=== PATIENT | female | born 1975 | race Hispanic/Latino ===

== ENCOUNTER 2020-06-17 17:29 | Outpatient (CLI) | payer BC, SELFPAY ==
--- NOTE | ~2020-06-17 | MM_ITS ---
EXAMINATION: MM screening [facility] BI w ceasar HISTORY: Screening TECHNIQUE: Craniocaudal and mediolateral oblique 3-D tomosynthesis images were obtained and synthetic 2-D images were generated. CAD analysis was submitted and interpreted. COMPARISON: Comparison to multiple prior studies sequentially, with oldest reviewed study dated 03/04. BREAST PARENCHYMAL COMPOSITION: The breasts are extremely dense, which lowers the sensitivity of mamm ography. FINDINGS: There is no evidence of suspicious mass, calcification, or architectural distortion to sugg est malignancy in either breast. There has been no suspicious interval change. IMPRESSION: 1. No mammographic evidence of malignancy. 2. Recommend routine screening mammography in one year. BI-RADS Category 1: Negative Reviewed, dictated and finalized at location A. KOUT OPERATOR
== END 2020-06-17 17:30 | disposition home or self-care (01) ==
LOC: ANHIMG 17:32
PROVIDERS: Visit Provider Obstetrics & Gynecology
DX: Z12.31 Encounter for screening mammogram for malignant neoplasm of breast (principal)
CPT/HCPCS: 77063; 77067

== ENCOUNTER 2021-02-01 17:13 | Outpatient (CLI) | payer BC, SELFPAY ==
[2021-02-01 18:11] LABS: Alanine Aminotransferase 21 U/L (4-35); Albumin Level 4.1 g/dL (3.5-5.1); Alkaline Phosphatase 60 U/L (38-126); Aspartate Amino Transferase 29 U/L (14-36); Bilirubin,Total 0.5 mg/dL (0.2-1.3)
== END 2021-02-01 17:14 | disposition home or self-care (01) ==
LOC: ANHLAB 17:18
PROVIDERS: PCP Podiatrist Foot & Ankle Surgery
DX: B35.1 Tinea unguium (principal)
CPT/HCPCS: 36415; 80076

== ENCOUNTER 2021-06-21 16:09 | Outpatient (CLI) | payer BC, SELFPAY ==
--- NOTE | ~2021-06-21 | MM_ITS ---
EXAMINATION: MM screening [facility] BI w ceasar HISTORY: Screening TECHNIQUE: Craniocaudal and mediolateral oblique 3-D tomosynthesis images were obtained and synthetic 2-D images were generated. CAD analysis was submitted and interpreted. COMPARISON: Comparison to multiple prior studies sequentially, with oldest reviewed study dated 07/2015. BREAST PARENCHYMAL COMPOSITION: The breasts are extremely dense, which lowers the sensitivity of mamm ography FINDINGS: There is no evidence of suspicious mass, calcification, or architectural distortion to sugg est malignancy in either breast. There has been no suspicious interval change. IMPRESSION: 1. No mammographic evidence of malignancy. 2. Recommend routine screening mammography in one year. BI-RADS Category 1: Negative Reviewed, dictated and finalized at location A. ITY CONTROL LAB TECHNICIAN
== END 2021-06-21 16:10 | disposition home or self-care (01) ==
LOC: ANHIMG 16:21
PROVIDERS: Visit Provider Family Medicine
DX: Z12.31 Encounter for screening mammogram for malignant neoplasm of breast (principal)
CPT/HCPCS: 77063; 77067

== ENCOUNTER → 2023-01-06 11:23 | Outpatient (CLI) | payer BC, SELFPAY ==
--- NOTE | ~2023-01-06 | MM_ITS ---
EXAMINATION: MM screening [facility] BI w ceasar HISTORY: Screening mammogram TECHNIQUE: Craniocaudal and mediolateral oblique 3-D tomosynthesis images were obtained and synthetic 2-D images were generated. CAD analysis was submitted and interpreted. COMPARISON: 06/21/2021, 06/17/2020, 05/20/2019 BREAST PARENCHYMAL COMPOSITION: The breasts are extremely dense, which lowers the sensitivity of mamm ography. FINDINGS: No suspicious mass, calcification, or architectural distortion are identified in either jessica ast to suggest malignancy. There has been no suspicious interval change. IMPRESSION: 1. No mammographic evidence of malignancy. 2. Recommend routine screening mammography in one year. BI-RADS Category 1: Negative Reviewed, dictated and finalized at location A.
== END ==
PROVIDERS: PCP Physician Assistant; Visit Provider Physician Assistant
DX: Z12.31 Encounter for screening mammogram for malignant neoplasm of breast (principal)
CPT/HCPCS: 77063; 77067

== ENCOUNTER 2023-04-03 21:57 | Emergency (ER) | payer OTHER, BC, SELFPAY ==
[2023-04-03 22:15] VITALS: BP 103/70; PULSE 66; RESP 14; TEMP 36.5; O2SAT 100
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
== END 2023-04-04 00:56 | disposition home or self-care (01) ==
PROVIDERS: Emergency Provider Emergency Medicine; PCP Physician Assistant
DX: S30.810A Abrasion of lower back and pelvis, initial encounter (principal); V43.52XA Car driver injured in collision with other type car in traffic accident, initial encounter
CPT/HCPCS: 99283

== ENCOUNTER 2023-05-10 16:09 | Outpatient (CLI) | payer BC, SELFPAY ==
--- NOTE | ~2023-05-10 | US_ITS ---
EXAMINATION: US pelvic complete w TV DATE: 05/10/2023 17:19 INDICATION: Pelvic pain. TECHNIQUE: Multiple transabdominal and transvaginal sonographic images of the pelvis were obtained. COMPARISON: None. FINDINGS: TRANSABDOMINAL ULTRASOUND: The uterus measures 7.1 x 3.1 x 4.1 cm. There is physiologic free fluid in the pelvis. TRANSVAGINAL ULTRASOUND: The endometrial complex measures 3 mm in thickness. The right ovary measures 3.5 x 1.0 x 1.8 cm. The left ovary measures 2.6 x 1.7 x 2.1 cm. There is normal vascular flow in the ovaries. IMPRESSION: 1. Normal pelvis. Reviewed, dictated and finalized at location E. ROADER IMPRESSION: 1. Normal pelvis.
== END 2023-05-10 16:10 | disposition home or self-care (01) ==
PROVIDERS: PCP Physician Assistant; Visit Provider Physician Assistant
DX: R10.2 Pelvic and perineal pain (principal)
CPT/HCPCS: 76830; 76856

== ENCOUNTER 2024-05-19 15:42 | Outpatient (CLI) | payer OTHER, SELFPAY ==
--- NOTE | ~2024-05-19 | MM_ITS ---
EXAMINATION: MM screening [facility] BI w ceasar HISTORY: Screening TECHNIQUE: Craniocaudal and mediolateral oblique 3-D tomosynthesis images were obtained and synthetic 2-D images were generated. CAD analysis was submitted and interpreted. COMPARISON: Comparison to multiple prior studies sequentially, with oldest reviewed study dated 04/04. BREAST PARENCHYMAL COMPOSITION: Dense: The breasts are extremely dense, which lowers the sensitivity of mammography. FINDINGS: There is no evidence of suspicious mass, calcification, or architectural distortion to sugg est malignancy in either breast. There has been no suspicious interval change. IMPRESSION: 1. No mammographic evidence of malignancy. 2. Recommend routine screening mammography in one year. BI-RADS Category 1: Negative Reviewed, dictated and finalized at location B. OR MAINTENANCE MACHINIST
== END 2024-05-19 15:43 | disposition home or self-care (01) ==
PROVIDERS: PCP Physician Assistant; Visit Provider Physician Assistant
DX: Z12.31 Encounter for screening mammogram for malignant neoplasm of breast (principal)
CPT/HCPCS: 77063; 77067

== ENCOUNTER 2025-01-12 06:15 | Day surgery (SDC) | payer OTHER, SELFPAY ==
[2024-07-03 07:53] VITALS: BMI 18.1
[2025-01-12 08:00] VITALS: BP 71/45; PULSE 78; RESP 14; TEMP 37.2; O2SAT 99; BMI 16.1
[2025-01-12 08:15] VITALS: BP 116/73; PULSE 82; RESP 14; O2SAT 100
[2025-01-12] MEDS: LACTATED RINGERS 1,000 ML 150 ML IV CONT (08:17)
--- NOTE | 2025-01-12 08:18 | WPDANESEPPF ---
Anes - Initial Pre Proc Eval Procedure: Operation Date: 01/12/25 08:00 Proposed Procedures p Screening Colonoscopy - Dong Barker MD Date/Time: 01/12/25 08:18 Surgeon: Dong Barker MD Pre Op Diagnosis: Neoplasm Screening Patient Data Age: 49 Gender: F Height: 1.65 m Weight: 43.9 kg Last Vital Signs Temp 98.9 F 01/12/25 08:00 Pulse 78 01/12/25 08:00 Resp 14 01/12/25 08:00 BP 71/45 L 01/12/25 08:00 Pulse Ox 99 01/12/25 08:00 O2 Del Method Room Air 01/12/25 08:00 Allergies Allergy/AdvReac Type Severity Reaction Status Date / Time No Known Allergies Allergy Verified 12/29/24 11:37 Home Medications ?Medication ?Instructions ?Recorded ?Confirmed ?Type gabapentin 100 mg capsule 100 mg PO TID 07/03/23 01/12/25 History Patient hx anesthesia problems: none Family hx anesthesia problems: none Results Review: All pre-operative results and documents have been reviewed as part of the pre-operative evaluation. [facility] Social History Social History Smoking status: Never smoker Alcohol intake: unknown Substance use: unknown Substance use type: does not use Living arrangements: with family Additional living arrangements comments: with sp Spiritual care concerns: No Anes - Eval Final PreProcedure Day of Procedure 01/12/25 08:18 Heart: regular rate and rhythm Lungs: clear to auscultation Airway: Mallampati scale class 1 Last oral intake: >/= 8 hours ASA classification: II Anesthetic plan: proceed Anesthesia type and monitoring: monitored anesthesia care Results Review: All pre-operative results and documents have been reviewed as part of the pre-operative evaluation. Informed Consent: The patient's anesthetic plan and its attendant risks and benefits were discussed with the patient/family/POA. Questions were solicited and answers provided to the satisfaction of the patient/family/POA.
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
--- NOTE | 2025-01-12 08:31 | HP_ITS ---
This report was moved to the correct visit on 01/15/2025. The original report was signed by Dong Barker MD on 01/12/25 0831. H&P: HPI History of Present Illness Date/Time: 01/12/25 08:30 Chief Complaint: Family history of colorectal cancer Narrative: This patient has family history of colorectal cancer. her brother recently from colorectal cancer, he was diagnosed when he was 58 years old. Review of Systems Review of Systems: All systems reviewed & are unremarkable except as noted in HPI and below [facility] Social History Social History Smoking status: Never smoker Alcohol intake: unknown Substance use: unknown Substance use type: does not use Living arrangements: with family Additional living arrangements comments: with sp Spiritual care concerns: No Meds Home Medications and Allergies Home Medications ?Medication ?Instructions ?Recorded ?Confirmed ?Type gabapentin 100 mg capsule 100 mg PO TID 07/03/23 01/12/25 History Allergies Allergy/AdvReac Type Severity Reaction Status Date / Time No Known Allergies Allergy Verified 12/29/24 11:37 Exam Const: General: cooperative and healthy appearing Resp: Effort & Inspection: normal respiratory effort and able to speak in complete sentences Auscultation: clear to auscultation bilaterally Cardio: Rate: regular rate Rhythm: regular rhythm GI: Inspection: normal to inspection GI Palp: No No hepatosplenomegaly present Auscultation: normal bowel sounds Rectal Exam: deferred Skin: General skin exam: normal color Psych: Appearance: grossly normal Mental Status: mental status grossly normal Assessment and Plan Assessment and plan (1) Family history of colon cancer: Code(s): Z80.0 - Family history of malignant neoplasm of digestive organs Status: Acute Assessment and Plan: The patient is deemed a good candidate for the procedure. Consent signed. Will proceed. Please be advised this is a medical document. It is intended for [id number] communication. It is written in medical language and may contain unfamiliar abbreviations or verbiage. Medical documents are intended to carry relevant information, facts as evident, and the clinical opinion of the practitioner at the time of the encounter. This report may have been done utilizing a voice recognition system. Attempts have been made to correct errors. However, there may be uncorrected grammatical, spelling, and recognition errors present. The file time of this note does not necessarily represent the time the patient was seen. Report Initialized date/time: Dong Barker MD 01/12/25830 Electronically signed by: Dong Barker MD 01/12/25830
--- NOTE | 2025-01-12 08:52 | WPDANESPN ---
Anes - Prog Note Post-Op Date/Time: 01/12/25 08:52 Vital Signs: Last Vital Signs Temp 98.9 F 01/12/25 08:00 Pulse 82 01/12/25 08:15 Resp 14 01/12/25 08:15 BP 116/73 01/12/25 08:15 Pulse Ox 100 01/12/25 08:15 O2 Del Method Room Air 01/12/25 08:15 Pain Score (VAS): no Patient Feedback: Patient satisfied with anesthetic care.
[2025-01-12 08:56] VITALS: BP 92/66; PULSE 73; RESP 16; O2SAT 100
[2025-01-12 09:06] VITALS: BP 97/67; PULSE 71; RESP 16; O2SAT 100
[2025-01-12 09:16] VITALS: BP 97/69; PULSE 61; RESP 16; O2SAT 100
== END 2025-01-12 09:31 | disposition home or self-care (01) ==
PROVIDERS: PCP Physician Assistant; Visit Provider Internal Medicine Gastroenterology
PROC: 0DJD8ZZ Inspection of Lower Intestinal Tract, Via Natural or Artificial Opening Endoscopic (ICD-10-PCS; CPT 45378; principal; 2025-01-12 08:00)
DX: Z12.11 Encounter for screening for malignant neoplasm of colon (principal); Z80.0 Family history of malignant neoplasm of digestive organs
CPT/HCPCS: 45378